=== PATIENT | female | born 1960 | race Caucasian/White ===

== ENCOUNTER 2025-01-20 16:11 | Emergency (ER) | payer OTHER ==
[2025-01-20] MEDS ORDERED: LIDOCAINE VISCOUS 2% 10ML ORAL SOLN ONE (16:44)
[2025-01-20] MEDS ORDERED: NA CHLORIDE 0.9% 1,000 ML ONE (16:44)
[2025-01-20] MEDS ORDERED: DIPHENHYDRAMINE 50 MG/ML VIAL ONE (16:44)
[2025-01-20] MEDS ORDERED: METHYLPREDNISOLONE 125 MG INJ ONE (16:44)
[2025-01-20] MEDS ORDERED: FAMOTIDINE 20 MG/2 ML VIAL IV ONE (16:44)
[2025-01-20] MEDS ORDERED: MAGNES/ALUMIN/SIMET 30ML UCUP ONE (16:44)
[2025-01-20 17:01] LABS: Absolute Lymphocytes (CBC) 0.6 K/uL (0.7-4.9); Hematocrit 41.9 % (36.0-45.0); Hemoglobin 14.2 g/dL (12.0-15.0); MCH 31.6 pg (27.0-35.0); MCHC 33.9 g/dL (32.0-36.0); MCV 93.1 fL (80-100); MPV 9.0 fL (7.6-11.3); Nucleated RBC Absolute Count 0.0 (0-0); Nucleated Red Blood Cells % 0.1 % (0-0); RBC Red Blood Cell Count 4.50 M/uL (3.86-4.86); White Blood Count 5.90 thou/uL (4.3-10.9)
[2025-01-20 17:23] LABS: ALT/SGPT 45 U/L (13-56); Albumin 4.0 g/dL (3.4-5.0); Albumin/Globulin Ratio 1.3 (1.1-1.8); Alkaline Phosphatase 96 U/L (45-117); Anion Gap 9.2 mEq/L (5.0-15.0); BUN Blood Urea Nitrogen 17 mg/dL (7-18); Bilirubin Indirect, Calculated 0.7 mg/dL (0.2-0.8); Globulin 3.2 g/dL (2.3-3.5); Glucose Level 93 mg/dL (74-106)
[2025-01-20 17:25] LABS: AST/SGOT 30 U/L (15-37); Magnesium 2.2 mg/dL (1.6-2.4); Potassium 4.2 mEq/L (3.5-5.1); Troponin High Sensitivity < 3.0 pg/mL (<58.9)
--- NOTE | 2025-01-20 18:04 | RAD REPORT ---
EXAM: Chest Single View HISTORY: 64 years Female CHEST PAIN COMPARISON: 07/10/21 FINDINGS: LUNGS/PLEURA: The lungs are clear. No pleural effusions or pneumothorax. No pulmonary edema. CARDIAC/MEDIASTINUM: The cardiac silhouette is within normal limits. UPPER ABDOMEN: No significant abnormality. BONES: No acute abnormality. LINES/TUBES/OTHER: N/A IMPRESSION: No evidence of acute cardiopulmonary disease.
--- NOTE | 2025-01-20 18:19 | EDPHYS ---
Physician Documentation [facility] Name: Sarah Montemayor Age: 64 yrs Sex: Female : 1960 Arrival Date: 01/20/2025 Time: 16:11 Bed 4 Private MD: ED Physician Thee Shabazz HPI: 01/20 18:51 This 64 yrs old Female presents to ER via Ambulatory with complaints of Allergic kb Reaction - to meds. 18:51 Pt is a 64 year old female who presents for rash and pain to esophagus that started 3 kb days ago. States she started Flagyl on Saturday and believes she is having allergic reaction. States she took her dose of Flagyl this morning then called Dr. May's office and was told not to take it anymore to come to the ER for evaluation.. Historical: - Allergies: 16:24 Flagyl; dd2 16:24 Morphine; dd2 - PMHx: 16:24 Hypothyroidism; TRACHEAL STENOSIS; dd2 - PSHx: 16:24 Total abdominal hysterectomy; dd2 - Immunization history:: Adult Immunizations up to date. - Infectious Disease History:: Denies. - Social history:: Smoking status: Patient denies any tobacco usage or history of. ROS: 18:40 Constitutional: As per HPI kb Exam: 18:40 Constitutional: This is a well developed, well nourished patient who is awake, alert, kb and in no acute distress. Head/Face: Normocephalic, atraumatic. ENT: Moist Mucous membranes Cardiovascular: Regular rate Respiratory: Respirations even and unlabored. No increased work of breathing. Talking in full sentences Abdomen/GI: Soft, non-tender. No distention MS/ Extremity: Pulses equal, no cyanosis. Neurovascular intact. Full, normal range of motion. Neuro: Awake and alert, GCS 15, oriented to person, place, time, and situation. 18:40 Skin: rash a mild rash is noted, on the chest, right arm and left arm, 18:41 ECG was reviewed by the Attending Physician. kb Vital Signs: 16:18 BP 159 / 93; Pulse 97; Resp 17; Temp 98.5; Pulse Ox 100% on R/A; dd2 17:00 BP 139 / 83; Pulse 75; Resp 18; Pulse Ox 100% on R/A; db 18:30 BP 136 / 77; Pulse 79; Resp 18; Pulse Ox 100% on R/A; db [place] Coma Score: 17:00 Eye Response: spontaneous(4). Motor Response: obeys commands(6). Verbal Response: db oriented(5). Total: 15. MDM: 16:15 Medical Screening Exam initiated kb 18:42 Differential diagnosis: anaphylaxis, angioedema, urticaria. Data reviewed: vital signs, kb nurses notes. Counseling: I had a detailed discussion with the patient and/or guardian regarding the historical points, exam findings, and any diagnostic results supporting the discharge/admit diagnosis, lab results, radiology results, the need for outpatient follow up, a family practitioner, to return to the emergency department if symptoms worsen or persist or if there are any questions or concerns that arise at home. 01/20 16:25 Order name: Basic Metabolic Panel; Complete Time: 17:30 kb 01/20 16:25 Order name: CBC with Diff; Complete Time: 17:30 kb 01/20 16:25 Order name: LFT's; Complete Time: 17:30 kb 01/20 16:25 Order name: Magnesium; Complete Time: 17:30 kb 01/20 16:25 Order name: Troponin HS; Complete Time: 17:30 kb 01/20 16:25 Order name: Group A Streptococcus Rapid; Complete Time: 17:14 kb 01/20 16:25 Order name: [place] Screen Profile; Complete Time: 17:23 kb 01/20 17:11 Order name: Throat Culture EDMS 01/20 16:25 Order name: XRAY Chest (1 view); Complete Time: 18:06 kb 01/20 16:25 Order name: Cardiac monitoring; Complete Time: 17:09 kb 01/20 16:25 Order name: EKG - Nurse/Tech; Complete Time: 17:09 kb 01/20 16:25 Order name: IV Saline Lock; Complete Time: 16:58 kb 01/20 16:25 Order name: Labs collected and sent; Complete Time: 16:58 kb 01/20 16:25 Order name: O2 Per Protocol; Complete Time: 16:58 kb 01/20 16:25 Order name: O2 Sat Monitoring; Complete Time: 16:58 kb EC:41 Rate is 75 beats/min. Rhythm is regular. QRS [place] is Normal. [place] interval is normal at kb 162 msec. QRS interval is normal at 78 msec. QT interval is normal at 431 msec. Administered Medications: 16:25 CANCELLED (Duplicate Order): [id number] mg IVP once kb 16:57 Drug: MethylPrednisoLONE IVP 125 mg IVP once Route: IVP; Site: right hand; nh2 17:30 Follow up: Response: No adverse reaction nh2 16:57 Drug: Famotidine IVP 20 mg IVP once; dilute with 10 mL 0.9% NaCl; give over 2 minutes nh2 Route: IVP; Site: right hand; 17:30 Follow up: Response: No adverse reaction nh2 16:57 Drug: diphenhydrAMINE IVP 25 mg IVP once Route: IVP; Site: right hand; nh2 17:30 Follow up: Response: No adverse reaction nh2 16:57 Drug: GI Cocktail without - (Maalox PO 30 ml, Lidocaine Mucous Membrane 2 % 15 nh2 ml) PO once Route: PO; 17:47 Follow up: Response: No adverse reaction nh2 16:58 Drug: NS 0.9% IV 1000 ml IV at 1000 ml once; to be given as a bolus over 60 minutes nh2 Route: IV; Rate: 1000 ml; Site: right hand; Disposition: 19:47 I was immediately available on-site in the Emergency Department for consultation in the ms3 care of the patient. Disposition Summary: 01/20/25 18:18 Discharge Ordered Notes: Location: Home kb Condition: Stable kb Diagnosis - Rash and other nonspecific skin eruption kb - Adverse reaction to Flagyl kb Followup: kb - With: Emergency Department - When: As needed - Reason: Worsening of condition Followup: kb - With: Private Physician - When: 2 - 3 days - Reason: Recheck today's complaints, Continuance of care, Re-evaluation by your physician Discharge Instructions: - Discharge Summary Sheet kb - Allergies, Adult kb - Rash, Adult, [id number] kb Forms: - Medication Reconciliation Form kb - Antibiotic Education kb - Prescription Opioid Use kb - Patient Portal Instructions kb - Leadership Thank You Letter kb Prescriptions: - Pepcid 20 mg Oral Tablet - take 1 tablet ORAL route every 12 hours for 5 days; 10 tablet; Refills: 0, kb Product Selection Permitted - Prednisone 20 mg Oral Tablet - take 1 tablet ORAL route once daily for 5 days; 5 tablet; Refills: 0, Product kb Selection Permitted Signatures: Dispatcher [employer] EDMS Lara Menjivar, PSYCHIATRIC ASSISTANT-C PSYCHIATRIC ASSISTANT-Ckb Thee Shabazz, DO ms3 CHERISE CADE RN RN dd2 José Miguel Darnell Jr, RN RN nh2 Corrections: (The following items were deleted from the chart) 16:25 16:25 diphenhydrAMINE IVP 12.5 mg IVP once ordered. kb kb 18:25 17:33 Chest Single View ordered. EDMS EDMS
--- NOTE | 2025-01-20 18:19 | ER ---
Nurse's Notes [facility] Name: Sarah Montemayor Age: 64 yrs Sex: Female : 1960 Arrival Date: 01/20/2025 Time: 16:11 Bed 4 Private MD: Diagnosis: Rash and other nonspecific skin eruption;Adverse reaction to Flagyl Presentation: 01/20 16:18 Chief complaint: Patient states: BEGAN TAKING DOXYCYCLINE 2 WEEKS AGO AND FLAGYL ON dd2 01/13/2025. BEGAN HAVING DIFFICULTY SWALLOWING ON MONDAY 01/15, PAINFUL THROAT SATURDAY AND SATURDAY AND DEVELOPED A RASH ON BUE, BLE AND CHEST THIS MORNING WITH CHEST PRESSURE. PT REPORTS TAKING THE FLAGYL AGAIN THIS MORNING. Coronavirus screen: At this time, the client does not indicate any symptoms associated with coronavirus-19. Ebola Screen: No symptoms or risks identified at this time. Onset: The symptoms/episode began/occurred gradually, 01/15/2025. Anaphylaxis evaluation, no signs or symptoms of anaphylaxis were noted. Initial Sepsis Screen: Does the patient meet any 2 criteria? No. Patient's initial sepsis screen is negative. Does the patient have a suspected source of infection? No. Patient's initial sepsis screen is negative. Risk Assessment: Do you want to hurt yourself or someone else? Patient reports no desire to harm self or others. Onset of symptoms was January 15, 2025. 16:18 Method Of Arrival: Ambulatory dd2 16:18 Acuity: NARESH 3 dd2 Triage Assessment: 16:24 General: Appears in no apparent distress. uncomfortable, Behavior is calm, cooperative, dd2 appropriate for age. Pain: Complains of pain in throat Pain currently is 1 out of 10 on a pain scale. EENT: Reports difficulty swallowing pain when swallowing. 16:24 Derm: Rash noted that is itchy, red, on chest, right arm, left arm, right leg and left dd2 leg. Historical: - Allergies: 16:24 Flagyl; dd2 16:24 Morphine; dd2 - PMHx: 16:24 Hypothyroidism; TRACHEAL STENOSIS; dd2 - PSHx: 16:24 Total abdominal hysterectomy; dd2 - Immunization history:: Adult Immunizations up to date. - Infectious Disease History:: Denies. - Social history:: Smoking status: Patient denies any tobacco usage or history of. Screenin:11 [facility] ED Fall Risk Assessment (Adult) History of falling in the last 3 months, db including since admission No falls in past 3 months (0 pts) Confusion or Disorientation No (0 pts) Intoxicated or Sedated No (0 pts) Impaired Gait No (0 pts) Mobility Assist Device Used No (0 pt) Altered Elimination No (0 pt) Score/Fall Risk Level 0 - 2 = Low Risk Oriented to surroundings, Maintained a safe environment. Abuse screen: Denies threats or abuse. Denies injuries from another. Nutritional screening: No deficits noted. Tuberculosis screening: No symptoms or risk factors identified. Assessment: 16:00 Reassessment: Patient appears in no apparent distress at this time. Patient and/or db family updated on plan of care and expected duration. Pain level reassessed. Patient is alert, oriented x 3, equal unlabored respirations, skin warm/dry/pink. 16:50 General: Appears in no apparent distress. comfortable, Behavior is calm, cooperative. db Pain: Complains of pain in chest and abdomen. Neuro: Level of Consciousness is awake, alert, obeys commands, Oriented to person, place, time, situation. Respiratory: Airway is patent Respiratory effort is even, unlabored, Respiratory pattern is regular, symmetrical, Breath sounds are clear. 18:37 Reassessment: Patient appears in no apparent distress at this time. Patient and/or db family updated on plan of care and expected duration. Pain level reassessed. Patient is alert, oriented x 3, equal unlabored respirations, skin warm/dry/pink. Patient states feeling better. Patient states symptoms have improved. Vital Signs: 16:18 BP 159 / 93; Pulse 97; Resp 17; Temp 98.5; Pulse Ox 100% on R/A; dd2 17:00 BP 139 / 83; Pulse 75; Resp 18; Pulse Ox 100% on R/A; db 18:30 BP 136 / 77; Pulse 79; Resp 18; Pulse Ox 100% on R/A; db [place] Coma Score: 17:00 Eye Response: spontaneous(4). Motor Response: obeys commands(6). Verbal Response: db oriented(5). Total: 15. ED Course: 16:14 Patient arrived in ED. al6 16:15 Lara Menjivar FNP-C [facility]. kb 16:15 Thee Shabazz DO is Attending Physician. kb 16:23 Triage completed. dd2 16:24 Arm band placed on right wrist. dd2 16:36 XRAY Chest (1 view) In Process Unspecified. EDMS 16:50 Initial lab(s) drawn, by me, sent to lab. EKG done. Inserted saline lock: 20 gauge in db right forearm, using aseptic technique. Blood collected. Flushed with 10 mL NS. 17:12 Patient has correct armband on for positive identification. Bed in low position. Call db light in reach. Side rails up X 1. Pillow given. 18:36 Mya Easley, RN is Primary Nurse. db 18:37 Provided Education on: DISCHARGE AND FOLLOWUP. db 18:37 No provider procedures requiring assistance completed. IV discontinued, intact, db bleeding controlled, No redness/swelling at site. Administered Medications: 16:25 CANCELLED (Duplicate Order): [id number] mg IVP once kb 16:57 Drug: MethylPrednisoLONE IVP 125 mg IVP once Route: IVP; Site: right hand; nh2 17:30 Follow up: Response: No adverse reaction nh2 16:57 Drug: Famotidine IVP 20 mg IVP once; dilute with 10 mL 0.9% NaCl; give over 2 minutes nh2 Route: IVP; Site: right hand; 17:30 Follow up: Response: No adverse reaction nh2 16:57 Drug: diphenhydrAMINE IVP 25 mg IVP once Route: IVP; Site: right hand; nh2 17:30 Follow up: Response: No adverse reaction nh2 16:57 Drug: GI Cocktail without - (Maalox PO 30 ml, Lidocaine Mucous Membrane 2 % 15 nh2 ml) PO once Route: PO; 17:47 Follow up: Response: No adverse reaction nh2 16:58 Drug: NS 0.9% IV 1000 ml IV at 1000 ml once; to be given as a bolus over 60 minutes nh2 Route: IV; Rate: 1000 ml; Site: right hand; Medication: 18:37 VIS not applicable for this client. db Outcome: 18:18 Discharge ordered by . kb 18:37 Discharged to home ambulatory, with family, db 18:37 Condition: stable 18:37 Discharge instructions given to patient, family, Instructed on discharge instructions, follow up and referral plans. Prescriptions given X 2, 18:38 Patient left the ED. db Signatures: Dispatcher [employer] EDMS Lara Menjivar, STEAK TENDERIZER MACHINE-C STEAK TENDERIZER MACHINE-Mya Phillips RN RN db CHERISE CADE RN RN dd2 José Miguel Darnell Jr, RN RN nh2 Chelsy [email or web address] Corrections: (The following items were deleted from the chart) 17:12 17:12 Warm blanket given. Pillow given. db db
[2025-01-20 18:50] VITALS: TEMP 98.5; O2SAT 100
[2025-01-20 18:53] VITALS: BP 136/77
== END 2025-01-20 18:38 | disposition home or self-care (01) ==
LOC: ER 16:11
DX: R21 Rash and other nonspecific skin eruption (principal); T37.3X5A Adverse effect of other antiprotozoal drugs, initial encounter
CPT/HCPCS: 93005; 87070; 85025; 80048; 36415; 83735; 86308; 80076; 84484; 71045; 96375; 96374; 99284; J1200; J2919; J7030